=== PATIENT | female | born 1955 | race Caucasian/White ===

== ENCOUNTER 2017-01-09 10:10 | Day surgery (SDC) | payer BC ==
[~2017-01-09 10:10] MED LIST: Lactated Ringers 1,000 ML IV SCH; Lidocaine 2% 5 ML SDV ONE; Propofol 200 MG/20 ML SDV ONE; Sodium Chloride 0.9% 10 ML Syringe FLUSH PRN; Sodium Chloride 0.9% 2.5 ML Syringe FLUSH PRN
--- NOTE | 2017-01-09 11:31 | PCM.PREANE ---
Preanesthetic Assessment - Anesthesia/Transfusion/Family Hx Anesthesia History: Prior Anesthesia Without Reaction Other Type of Anesthesia Reaction Comment: reports "little motion sickness", no problem in past w/anesthesia "anxiety" Family History of Anesthesia Reaction: No Transfusion History: No Prior Transfusion(s) - Review of Systems General: No Symptoms Pulmonary: No Symptoms Cardiovascular: No Symptoms Neurological: No Symptoms Other: Reports: None - Physical Assessment O2 Sat by Pulse Oximetry: 96 Respiratory Rate: 16 Vital Signs: Last Vital Signs Temp 36.6 C 01/09/17 11:14 Pulse 64 01/09/17 11:14 Resp 16 01/09/17 11:14 BP 95/63 01/09/17 11:14 Pulse Ox 96 01/09/17 11:14 Height: 1.7 m Weight: 104.326 kg ASA Class: 3 Mental Status: Alert & Oriented x3 Airway Class: Mallampati = 2 Dentition: Reports: Dentures (uppert) Thyro-Mental Finger Breadths: 3 Mouth Opening Finger Breadths: 2 ROM/Head Extension: Full Lungs: Clear to auscultation, Normal respiratory effort, Decreased breath sounds Cardiovascular: Regular Rate, Regular Rhythm - Allergies Allergies/Adverse Reactions: Allergies Allergy/AdvReac Type Severity Reaction Status Date / Time No Known Allergies Allergy Verified 01/06/17 14:05 - Blood Blood Available: No - Anesthesia Plan Pre-Op Medication Ordered: None - Acknowledgements Anesthesia Type Planned: MAC Pt an Appropriate Candidate for the Planned Anesthesia: Yes Alternatives and Risks of Anesthesia Discussed w Pt/Guardian: Yes Pt/Guardian Understands and Agrees with Anesthesia Plan: Yes PreAnesthesia Questionnaire HEENT History: Reports: Allergic rhinitis Other HEENT History: wears glasses Cardiovascular History: Reports: Hypertension Respiratory History: Reports: COPD (moderate SOB after 2 blocks, still smoking 1 ppd) Other Respiratory History: 40 yr history of smoking Gastrointestinal History: Reports: GERD, Hepatitis Other Gastrointestinal History: hepatitis C was treated in 2009 Genitourinary History: Reports: None 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 Musculoskeletal History: Reports: Arthritis, Back pain, chronic, Neck pain, chronic Other Musculoskeletal History: hx of fx lumbar vertebrate Neurological History: Reports: None, Other (see below) (h/o migranes) Psychiatric History: Reports: Anxiety Endocrine/Metabolic History: Reports: Hypothyroidism, Obesity/BMI 30+ Hematologic History: Reports: Anemia Immunologic History: Reports: None Oncologic (Cancer) History: Reports: None Dermatologic History: Reports: None - Past Surgical History Head Surgeries/Procedures: Reports: None HEENT Surgical History: Reports: None Cardiovascular Surgical History: Reports: None Respiratory Surgical History: Reports: None GI Surgical History: Reports: Cholecystectomy, Colonoscopy (attempted a year ago by Dr. Berry), Other (see below) Other GI Surgeries/Procedures: liver bx Female Surgical History: Reports: Tubal ligation, Other (see below) Other Female Surgeries/Procedures: laparotomy for reversal of tubal ligation Endocrine Surgical History: Reports: None Neurological Surgical History: Reports: None Musculoskeletal Surgical History: Reports: None Oncologic Surgical History: Reports: None Dermatological Surgical History: Reports: None - SUBSTANCE USE Smoking Status *Q: Current Every Day Smoker Tobacco Use Within Last Twelve Months: Cigarettes Recreational Drug Use History: No - HOME MEDS Home Medications: Home Meds Atenolol [Tenormin] 1 tab PO DAILY 05/22/15 [History] Levothyroxine Sodium 1 tab PO DAILY 05/22/15 [History] Omeprazole 1 tab PO DAILY 05/22/15 [History] Zolpidem Tartrate [Zolpidem Tartrate ER] 1 tab PO BEDTIME PRN 05/22/15 [History] Albuterol Sulfate [Proair Hfa] 1 - 2 puff INH Q4H PRN 01/06/17 [History] Cholecalciferol (Vitamin D3) [Vitamin D3] 2,000 units PO BID 01/06/17 [History] ClonazePAM [KlonoPIN] 0.5 mg PO ASDIRECTED PRN 01/06/17 [History] Acetaminophen [Tylenol] 650 mg PO DAILY PRN 01/09/17 [History] - CURRENT (IN HOUSE) MEDS Current Meds: Current Medications Lactated Ringer's (Ringers, Lactated) 1,000 mls @ 125 mls/hr IV ASDIRECTED CAROLE Last Admin: 01/09/17 11:09 Dose: 125 mls/hr Sodium Chloride (Saline Flush) 10 ml FLUSH ASDIRECTED PRN PRN Reason: Keep Vein Open Sodium Chloride (Saline Flush) 2.5 ml FLUSH ASDIRECTED PRN PRN Reason: Keep Vein Open Discontinued Medications Lidocaine (Xylocaine-Mpf 2%) Confirm Administered Dose 5 ml .ROUTE .STK-MED ONE Stop: 01/09/17 07:39 Propofol (Diprivan 20 Ml) Confirm Administered Dose 400 mg .ROUTE .STK-MED ONE Stop: 01/09/17 07:41
--- NOTE | 2017-01-09 12:58 | PCM.OPNOTE ---
- General Post-Op/Procedure Note Date of Surgery/Procedure: 01/09/17 Operative Procedure(s): Diagnostic colonoscopy Pre Op Diagnosis: Colonoscopy Post-Op Diagnosis: Rectal and descending colon polyp Anesthesia Technique: MAC Primary Surgeon: Aliya Hanley Condition: Good Free Text/Narrative:: Intake & Output 01/08/17 01/09/17 01/09/17 22:59 06:59 14:59 Intake Total 850 Balance 850
--- NOTE | 2017-01-09 13:08 | PCM.POSTAN ---
POST ANESTHESIA ASSESSMENT - MENTAL STATUS Mental Status: alert, oriented - RESPIRATORY Respiratory Status: respiratory rate WNL, airway patent, O2 saturation stable - CARDIOVASCULAR CV Status: pulse rate WNL, blood pressure stable - GASTROINTESTINAL GI Status: no symptoms - POST OP HYDRATION Hydration Status: adequate & stable - OBSERVATIONS Free Text/Narrative:: no anesthesia problems
--- NOTE | 2017-01-09 15:17 | OR ---
SURGEON: KELSEY HORNE MD DATE OF PROCEDURE: 01/09/2017 PREOPERATIVE DIAGNOSIS: Change in bowel habits. POSTOPERATIVE DIAGNOSES: Descending colon polyp, rectal polyp. PROCEDURE PERFORMED: Colonoscopy. INSTRUMENT USED: Olympus colonoscope. ANESTHESIA: MAC. EXTENT OF EXAM: To the cecum. PREPARATION: Fair. LIMITATIONS: Unable to retroflex the scope in the rectum due to anesthetic reaction. INDICATIONS: The patient is a 61-year-old female, who underwent a colonoscopy last year. This was done for a change in her bowel habits. The colonoscopy was then able to be completed and the patient had a barium enema performed. Barium enema showed no evidence of abnormalities. The patient continues to have very loose stools and returns to discuss another colonoscopy. The patient and I discussed our options including non-colonoscopic way of assessing the colon. The patient would like to proceed with a colonoscopy attempt again this year. Should this fail, the patient will then undergo another barium enema. The patient and I discussed the procedure as well as expected perioperative course. The patient and I also discussed the risks including bleeding, infection, or damage to surrounding structures, including perforation. The patient verbalized understanding and wishes to proceed. PROCEDURE IN DETAIL: The patient was brought to the endoscopy suite and placed in left lateral decubitus position. A time-out was completed verifying the patient's name, age, date of , allergies, and procedure to be performed. Monitored anesthesia care was induced and continuous oxygen was provided via nasal cannula throughout the procedure. After adequate sedation was achieved, a digital rectal exam was performed. This examination was within normal limits. A well-lubricated colonoscope was then inserted into the rectum and advanced under direct visualization to the level of the cecum. The cecum was identified by both visual and anatomic landmarks. A photograph was taken of the cecal cap as well as with the scope retroflexed within the cecum. The scope was then fully withdrawn while examining the color, texture, anatomy, and integrity of the mucosa from the cecum to the anal canal. A 2 mm sessile polyp was noted in the descending colon. This was removed with a cold biopsy forceps. Another larger polyp was noted within the rectum. This was 3 to 4 mm in size and was removed in a similar fashion. Both polyps were sent to pathology labeled as descending colon polyp and rectal polyp respectively. While attempting to retroflex the scope within the rectum, the patient woke up suddenly from Anesthesia and started thrashing about. The scope was expelled from the patient and we were unable to obtain good anesthetic control of the patient. Given my good digital rectal exam, a fairly good look at the rectum itself during my polypectomy. Decision was made to not attempt to retroflex the scope within the rectum. The patient was able to be calmed down and then taken to PACU in stable condition. The cecum to anus time was 21 minutes. ENDOSCOPIC DIAGNOSES: Descending colon polyp and rectal polyp. RECOMMENDATION: Follow up in clinic in 2 weeks. [facility] /[id number]
[2017-01-13 08:20] VITALS: BP 100/64
== END 2017-01-09 13:17 | disposition home or self-care (01) ==
LOC: MW.SDS 10:10
PROVIDERS: ATTEND Surgery
PROC: 0DBM8ZZ Excision of Descending Colon, Via Natural or Artificial Opening Endoscopic (ICD-10-PCS; principal; 2017-01-09)
PROC: 0DBP8ZZ Excision of Rectum, Via Natural or Artificial Opening Endoscopic (ICD-10-PCS; 2017-01-09)
DX: D12.4 Benign neoplasm of descending colon (principal); D12.8 Benign neoplasm of rectum; I10 Essential (primary) hypertension; J44.9 Chronic obstructive pulmonary disease, unspecified; K21.9 Gastro-esophageal reflux disease without esophagitis; M19.90 Unspecified osteoarthritis, unspecified site; G89.29 Other chronic pain; F41.9 Anxiety disorder, unspecified; E03.9 Hypothyroidism, unspecified; D64.9 Anemia, unspecified; F17.210 Nicotine dependence, cigarettes, uncomplicated; Z86.19 Personal history of other infectious and parasitic diseases; Z98.51 Tubal ligation status; Z90.49 Acquired absence of other specified parts of digestive tract; Z98.890 Other specified postprocedural states; Z79.899 Other long term (current) drug therapy
CPT/HCPCS: 45380; J7120; 00810; 88305; J2704

== ENCOUNTER → 2017-01-17 | Outpatient (CLI) | payer BC ==
[~2017-01-17] MED LIST changes: +Albuterol 0.083% 2.5 MG/3 ML Neb Soln NEB ONE; -Lactated Ringers 1,000 ML IV SCH; -Lidocaine 2% 5 ML SDV ONE; -Propofol 200 MG/20 ML SDV ONE; -Sodium Chloride 0.9% 10 ML Syringe FLUSH PRN; -Sodium Chloride 0.9% 2.5 ML Syringe FLUSH PRN
== END | disposition home or self-care (01) ==
LOC: MW.RT 08:38
PROVIDERS: ATTEND Internal Medicine
DX: J44.9 Chronic obstructive pulmonary disease, unspecified (principal)
CPT/HCPCS: 94060; 94729

== ENCOUNTER → 2017-01-30 | Outpatient (CLI) | payer BC | LOC: MW.CHIM 10:25 | PROVIDERS: ATTEND Internal Medicine | DX: R31.9 Hematuria, unspecified (principal) | CPT/HCPCS: 81001 ==

== ENCOUNTER → 2017-02-03 | Outpatient (CLI) | payer BC ==
--- NOTE | 2017-02-03 13:39 | US ---
EXAMINATION: Renal ultrasound HISTORY: Hematuria COMPARISON: None TECHNIQUE: Grayscale and color Doppler images obtained of the kidneys. FINDINGS: The right kidney measures at least 10.1 cm and the left kidney measures at least 10.7 cm p ole-to-pole without evidence of hydronephrosis. The renal cortical echotexture is normal. There is n ormal color Doppler flow bilaterally. No renal masses. The urinary bladder was minimally filled. IMPRESSION: Unremarkable renal ultrasound.
== END ==
LOC: MW.US 08:56
PROVIDERS: ATTEND Internal Medicine
DX: R31.9 Hematuria, unspecified (principal)
CPT/HCPCS: 76775; 76775-26

== ENCOUNTER 2017-12-16 05:59 | Emergency (ER) | payer BC ==
[2017-12-16] MEDS ORDERED: Ketorolac 60 MG/2 ML SDV IM ONE (06:22)
[2017-12-16] MEDS ORDERED: Ondansetron 4 MG Tab.DIS PO ONE (06:22)
--- NOTE | 2017-12-16 06:27 | EDM.PDOC ---
<Chasity Gramajo - Last Filed: 12/16/17 07:05> ED HPI GENERAL MEDICAL PROBLEM - General Chief Complaint: General Stated Complaint: HARD TIME BREATHING Time Seen by Provider: 12/16/17 06:15 - History of Present Illness INITIAL COMMENTS - FREE TEXT/NARRATIVE: HISTORY AND PHYSICAL: History of present illness: The patient is a 62-year-old female with a history of hypertension and hypothyroidism who presents with 2 complaints ED this morning; the first complaint is of right upper extremity and shoulder pain that is been ongoing for the last 6 weeks which feels more muscular and she has not had any trauma to the area and initially it was more along the posterior aspect of her right humeral area in the muscles and soft tissue and now appears to be involving the shoulder. She says that she has been only using Tylenol for pain and certain movements make it worse but she did not follow up with her provider in the clinic regarding this problem over the last 6 weeks. The second complaint is of waking this morning and feeling very sweaty and very shaky and having some loose watery stools and having some epigastric discomfort without any chest pain but feeling slightly short of breath. She said she felt very shaky when she awoke but does feel improved now. She does not have any chest pain or shortness of breath currently but did have shortness of breath prior to coming here. She has some epigastric discomfort but has a history of cholecystectomy and did not eat anything new or different. She has no lower abdominal pain no urinary complaints and no new back pain. The patient says that when she sits in any one position for any per time she'll get back spasms and that is not new or different today. The patient overall is very vague but also very diffuse with her complaints and is having trouble focusing on what concerns her the most. Review of systems: As per history of present illness and below otherwise all systems reviewed and negative. Past medical history: As per history of present illness and as reviewed below otherwise noncontributory. Surgical history: As per history of present illness and as reviewed below otherwise noncontributory. Social history: No reported history of drug or alcohol abuse. Family history: As per history of present illness and as reviewed below otherwise noncontributory. Physical exam: General: Well-developed well-nourished female who moves easily in the ED and vital signs are noted by me HEENT: Atraumatic, normocephalic, pupils reactive, negative for conjunctival pallor or scleral icterus, mucous membranes moist, throat clear, neck supple, nontender, trachea midline. Lungs: Clear to auscultation, breath sounds equal bilaterally, chest nontender. Heart: S1S2, regular rate and rhythm no overt murmurs Abdomen: Soft, nondistended, slight epigastric discomfort without rebound or guarding and bowel sounds are normoactive. Negative for masses or hepatosplenomegaly. Negative for costovertebral tenderness. Pelvis: Stable nontender. Genitourinary: Deferred. Rectal: Deferred. Extremities: Atraumatic, negative for cords or calf pain. Neurovascular unremarkable. Full range of motion without any defects or deficits. At the right upper extremity there is no discrete joint effusion at the shoulder no bony deformities at the clavicle shoulder humerus or elbow and no soft tissue swelling of the upper extremity. There is no ecchymosis erythema warmth or redness appreciated and there is some reproducible tenderness with palpation along the posterior aspect of the muscle area without any specific focal area of tenderness or deformity. The patient is able to range of motion at the right upper extremity and has good strength and sensation. Skin color is normal and there are no lesions appreciated. Neuro: Awake, alert, oriented. Cranial nerves II through XII unremarkable. Cerebellum unremarkable. Motor and sensory unremarkable throughout. Exam nonfocal. Diagnostics: EKG chest x-ray x-ray right shoulder and humerus CBC CMP troponin amylase lipase H pylori [employer]: Toradol Zofran 0700: case is endorsed to Dr Hilario; she will f/u all testing results and dispo pt accordingly. Impression: Chronic right upper extremity pain stable, epigastric discomfort and diarrhea stable Definitive disposition and diagnosis as appropriate pending reevaluation and review of above. Right Arm Pain Score (Numeric/FACES): 3 epigastric pain Pain Score (Numeric/FACES): 5 - Related Data Allergies Allergy/AdvReac Type Severity Reaction Status Date / Time No Known Allergies Allergy Verified 12/16/17 06:10 Home Meds: Home Meds Atenolol [Tenormin] 1 tab PO DAILY 05/22/15 [History] Levothyroxine Sodium 1 tab PO DAILY 05/22/15 [History] Zolpidem Tartrate [Zolpidem Tartrate ER] 1 tab PO BEDTIME PRN 05/22/15 [History] Albuterol Sulfate [Proair Hfa] 1 - 2 puff INH Q4H PRN 01/06/17 [History] Cholecalciferol (Vitamin D3) [Vitamin D3] 2,000 units PO DAILY 01/06/17 [History ] ClonazePAM [KlonoPIN] 0.5 mg PO ASDIRECTED PRN 01/06/17 [History] Acetaminophen [Tylenol] 650 mg PO DAILY PRN 01/09/17 [History] Omeprazole 20 mg PO DAILY #30 cap.cr 01/09/17 [Rx] Past Medical History HEENT History: Reports: Allergic Rhinitis Other HEENT History: wears glasses Cardiovascular History: Reports: Hypertension Respiratory History: Reports: COPD Other Respiratory History: 40 yr history of smoking Gastrointestinal History: Reports: GERD, Hepatitis Other Gastrointestinal History: hepatitis C was treated in 2009 Genitourinary History: Reports: None 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 Musculoskeletal History: Reports: Arthritis, Back Pain, Chronic, Neck Pain, Chronic Other Musculoskeletal History: hx of fx lumbar vertebrate Neurological History: Reports: None, Other (See Below) Psychiatric History: Reports: Anxiety Endocrine/Metabolic History: Reports: Hypothyroidism, Obesity/BMI 30+ Hematologic History: Reports: Anemia Immunologic History: Reports: None Oncologic (Cancer) History: Reports: None Dermatologic History: Reports: None - Past Surgical History GI Surgical History: Reports: Cholecystectomy, Colonoscopy, Other (See Below) Female Surgical History: Reports: Tubal Ligation, Other (See Below) Social & Family History - Tobacco Use Smoking Status *Q: Current Every Day Smoker Years of Tobacco use: 35 Packs/Tins Daily: 1 - Recreational Drug Use Recreational Drug Use: No Drug Use in Last 12 Months: No ED ROS GENERAL - Review of Systems Review Of Systems: ROS reveals no pertinent complaints other than HPI. ED EXAM, GENERAL - Physical Exam Exam: See Below (See dictation) Course - Vital Signs Last Recorded V/S: Last Vital Signs Temp 96.5 F 12/16/17 06:10 Pulse 73 12/16/17 07:39 Resp 18 12/16/17 07:39 BP 119/80 12/16/17 07:39 Pulse Ox 95 12/16/17 07:39 - Orders/Labs/Meds Orders: Active Orders 24 hr Category Date Time Status EKG Documentation Completion [RC] STAT Care 12/16/17 06:21 Active Chest 1V Frontal [CR] Stat Exams 12/16/17 06:22 Taken Humerus Rt [CR] Stat Exams 12/16/17 06:22 Taken Shoulder Comp Rt [CR] Stat Exams 12/16/17 06:22 Taken UA W/MICROSCOPIC [URIN] Stat Lab 12/16/17 06:23 Ordered Labs: Laboratory Tests 12/16/17 12/16/17 12/16/17 Range/Units 06:23 06:35 06:35 WBC 9.39 (4.0-11.0) K/uL RBC 5.11 (4.30-5.90) M/uL Hgb 15.7 (12.0-16.0) g/dL Hct 44.6 (36.0-46.0) % MCV 87.3 (80.0-98.0) fL MCH 30.7 (27.0-32.0) pg MCHC 35.2 (31.0-37.0) g/dL RDW Std Deviation 43.4 (28.0-62.0) fl RDW Coeff of Tonya 14 (11.0-15.0) % Plt Count 201 (150-400) K/uL MPV 10.90 (7.40-12.00) fL Neut % (Auto) 69.0 (48.0-80.0) % Lymph % (Auto) 22.8 (16.0-40.0) % Greenlee % (Auto) 6.3 (0.0-15.0) % Eos % (Auto) 1.6 (0.0-7.0) % Baso % (Auto) 0.3 (0.0-1.5) % Neut # (Auto) 6.5 H (1.4-5.7) K/uL Lymph # (Auto) 2.1 (0.6-2.4) K/uL Greenlee # (Auto) 0.6 (0.0-0.8) K/uL Eos # (Auto) 0.2 (0.0-0.7) K/uL Baso # (Auto) 0.0 (0.0-0.1) K/uL Nucleated RBC % 0.0 /100WBC Nucleated RBCs # 0 K/uL Sodium 135 L (136-145) mmol/L Potassium 3.5 (3.5-5.1) mmol/L Chloride 100 (98-107) mmol/L Carbon Dioxide 23.8 (21.0-32.0) mmol/L BUN 15 (7.0-18.0) mg/dL Creatinine 1.0 (0.6-1.0) mg/dL Est Cr Clr Drug Dosing 56.72 mL/min Estimated GFR (MDRD) 56.2 ml/min Glucose 143 H (74-106) mg/dL Calcium 8.8 (8.5-10.1) mg/dL Total Bilirubin 0.5 (0.2-1.0) mg/dL AST 41 H (15-37) IU/L ALT 48 (14-63) IU/L Alkaline Phosphatase 104 (46-116) U/L Troponin I < 0.050 (0.000-0.056) ng/mL Total Protein 7.7 (6.4-8.2) g/dL Albumin 3.8 (3.4-5.0) g/dL Globulin 3.9 H (2.0-3.5) g/dL Albumin/Globulin Ratio 1.0 L (1.3-2.8) Amylase 35 (25-115) U/L Lipase 241 (73-393) U/L Urine Color YELLOW Urine Appearance CLEAR Urine pH 5.5 (5.0-8.0) Ur Specific [place] >= 1.030 (1.001-1.035) Urine Protein 30 (NEGATIVE) mg/dL Urine Glucose (UA) NEGATIVE (NEGATIVE) mg/dL Urine Ketones TRACE H (NEGATIVE) mg/dL Urine Occult Blood NEGATIVE (NEGATIVE) Urine Nitrite NEGATIVE (NEGATIVE) Urine Bilirubin SMALL H (NEGATIVE) Urine Ictotest NEGATIVE Urine Urobilinogen 0.2 (<2.0) EU/dL Ur Leukocyte Esterase NEGATIVE (NEGATIVE) Urine RBC 0-1 (0-2/HPF) Urine WBC 2-4 (0-5/HPF) Ur Epithelial Cells MODERATE (NONE-FEW) Urine Bacteria FEW (NEGATIVE) Hyaline Casts 10-15 (0-2/LPF) Urine Mucus LIGHT (NONE-MOD) H. pylori IgG Antibody (NEG) 12/16/17 Range/Units 06:35 WBC (4.0-11.0) K/uL RBC (4.30-5.90) M/uL Hgb (12.0-16.0) g/dL Hct (36.0-46.0) % MCV (80.0-98.0) fL MCH (27.0-32.0) pg MCHC (31.0-37.0) g/dL RDW Std Deviation (28.0-62.0) fl RDW Coeff of Tonya (11.0-15.0) % Plt Count (150-400) K/uL MPV (7.40-12.00) fL Neut % (Auto) (48.0-80.0) % Lymph % (Auto) (16.0-40.0) % [place]lee % (Auto) (0.0-15.0) % Eos % (Auto) (0.0-7.0) % Baso % (Auto) (0.0-1.5) % Neut # (Auto) (1.4-5.7) K/uL Lymph # (Auto) (0.6-2.4) K/uL [place]lee # (Auto) (0.0-0.8) K/uL Eos # (Auto) (0.0-0.7) K/uL Baso # (Auto) (0.0-0.1) K/uL Nucleated RBC % /100WBC Nucleated RBCs # K/uL Sodium (136-145) mmol/L Potassium (3.5-5.1) mmol/L Chloride (98-107) mmol/L Carbon Dioxide (21.0-32.0) mmol/L BUN (7.0-18.0) mg/dL Creatinine (0.6-1.0) mg/dL Est Cr Clr Drug Dosing mL/min Estimated GFR (MDRD) ml/min Glucose (74-106) mg/dL Calcium (8.5-10.1) mg/dL Total Bilirubin (0.2-1.0) mg/dL AST (15-37) IU/L ALT (14-63) IU/L Alkaline Phosphatase (46-116) U/L Troponin I (0.000-0.056) ng/mL Total Protein (6.4-8.2) g/dL Albumin (3.4-5.0) g/dL Globulin (2.0-3.5) g/dL Albumin/Globulin Ratio (1.3-2.8) Amylase (25-115) U/L Lipase (73-393) U/L Urine Color Urine Appearance Urine pH (5.0-8.0) Ur Specific [place] (1.001-1.035) Urine Protein (NEGATIVE) mg/dL Urine Glucose (UA) (NEGATIVE) mg/dL Urine Ketones (NEGATIVE) mg/dL Urine Occult Blood (NEGATIVE) Urine Nitrite (NEGATIVE) Urine Bilirubin (NEGATIVE) Urine Ictotest Urine Urobilinogen (<2.0) EU/dL Ur Leukocyte Esterase (NEGATIVE) Urine RBC (0-2/HPF) Urine WBC (0-5/HPF) Ur Epithelial Cells (NONE-FEW) Urine Bacteria (NEGATIVE) Hyaline Casts (0-2/LPF) Urine Mucus (NONE-MOD) H. pylori IgG Antibody NEGATIVE (NEG) Meds: Medications Discontinued Medications Generic Name Dose Route Start Last Admin Trade Name Freq PRN Reason Stop Dose Admin Ketorolac Tromethamine 60 mg 12/16/17 06:22 12/16/17 06:35 Toradol IM 12/16/17 06:23 60 mg ONETIME ONE Administration Ondansetron HCl 4 mg 12/16/17 06:22 12/16/17 06:35 Zofran Odt PO 12/16/17 06:23 4 mg ONETIME ONE Administration Departure - Departure Disposition: Home, Self-Care 01 Condition: Good Clinical Impression: Upper extremity pain Qualifiers: Laterality: right Qualified Code(s): M79.601 - Pain in right arm - Discharge Information Referrals: PCP,None [Primary Care Provider] - Forms: ED Department Discharge Additional Instructions: The following information is given to patients seen in the emergency department who are being discharged to home. This information is to outline your options for follow-up care. We provide all patients seen in our emergency department with a follow-up referral. The need for follow-up, as well as the timing and circumstances, are variable depending upon the specifics of your emergency department visit. If you don't have a primary care physician on staff, we will provide you with a referral. We always advise you to contact your personal physician following an emergency department visit to inform them of the circumstance of the visit and for follow-up with them and/or the need for any referrals to a consulting specialist. The emergency department will also refer you to a specialist when appropriate. This referral assures that you have the opportunity for followup care with a specialist. All of these measure are taken in an effort to provide you with optimal care, which includes your followup. Under all circumstances we always encourage you to contact your private physician who remains a resource for coordinating your care. When calling for followup care, please make the office aware that this follow-up is from your recent emergency room visit. If for any reason you are refused follow-up, please contact the [facility] emergency department at and ask to speak to the emergency department charge nurse. [facility] Primary care- Internal Medicine and Family [address] [address] Please contact your new provider in the clinic for further care and evaluation of these complaints. Please return to ER as needed and as discussed. <Anna Hilario - Last Filed: 12/16/17 07:54> Departure - Departure Time of Disposition: 07:54
[2017-12-16 07:06] LABS: CHLORIDE,CL 100 mmol/L (98-107); SODIUM,NA 135 mmol/L (136-145)
[2017-12-16 08:11] VITALS: BP 150/88
--- NOTE | 2017-12-16 09:53 | CR ---
EXAM DATE: 12/16/17 PATIENT'S AGE: 62 Patient: LAIYA THOMSON Facility: [place], [place] Site . Site : 1955 Study: XRay Chest [id number]/3/[id number] 7:26:40 AM Ordering Physician: Rox Gaspar Final Report: INDICATION: Chest pain COMPARISON: Two view chest dated 12/20/2016. TECHNIQUE: Two view chest. FINDINGS: The lungs are clear. There is no evidence of pneumothorax. The heart, mediastinum and pulmonary vessels are of normal size. There is no evidence of pleural fluid. IMPRESSION: Negative chest. Dictated by Darrion Bernal MD @ Dec 16 2017 7:27AM (Electronic Signature) Report Signed by Proxy. [facility]
--- NOTE | 2017-12-16 09:57 | CR ---
EXAM DATE: 12/16/17 PATIENT'S AGE: 62 Patient: ALIYA THOMSON Facility: [place], [place] Site . Site : 1955 Study: XRay Extremity Right [id number]/3/2018 7:29:49 AM Ordering Physician: Rox Gaspar Final Report: INDICATION: Pain COMPARISON: none TECHNIQUE: Two-view right humerus FINDINGS: The glenohumeral joint and elbow are anatomically aligned. There is no evidence of a humeral fracture, erosion or intrinsic bone lesion. The soft tissues appear normal. IMPRESSION: Negative right humerus. Dictated by Darrion Bernal MD @ Dec 16 2017 7:36AM (Electronic Signature) Report Signed by Proxy. [facility]
--- NOTE | 2017-12-16 09:58 | CR ---
EXAM DATE: 12/16/17 PATIENT'S AGE: 62 Patient: ALIYA THOMSON Facility: [place], [place] Site . Site : 1955 Study: XRay Shoulder Right [id number]/3/2018 7:30:23 AM Ordering Physician: Rox Gaspar Final Report: INDICATION: Shoulder pain COMPARISON: none TECHNIQUE: Three-view right shoulder FINDINGS: The AC joint and glenohumeral joint are anatomically aligned. There is no evidence of fracture, erosion or intrinsic bone lesion. The upper right ribs appear intact. The soft tissues appear normal. IMPRESSION: Negative right shoulder. Dictated by Darrion Bernal MD @ Dec 16 2017 7:38AM (Electronic Signature) Report Signed by Proxy. FELIPA
== END 2017-12-16 08:06 | disposition home or self-care (01) ==
LOC: MW.ED 05:59
DX: M25.511 Pain in right shoulder (principal); R10.13 Epigastric pain; I10 Essential (primary) hypertension; J44.9 Chronic obstructive pulmonary disease, unspecified; F17.210 Nicotine dependence, cigarettes, uncomplicated; K21.9 Gastro-esophageal reflux disease without esophagitis; Z86.19 Personal history of other infectious and parasitic diseases; Z79.899 Other long term (current) drug therapy
CPT/HCPCS: 36415; 71045; 73030; 73060; 80053; 81001; 82150; 83690; 84484; 85025; 86677; 93005; 96372; 99284; A9270; J1885

== ENCOUNTER 2019-09-30 10:16 | Day surgery (SDC) | payer MEDICARE, OTHER ==
[~2019-09-30 10:16] MED LIST changes: -Albuterol 0.083% 2.5 MG/3 ML Neb Soln NEB ONE; +Lactated Ringers 1,000 ML IV SCH; +Sodium Chloride 0.9% 10 ML SDV IV PRN; +Sodium Chloride 0.9% 10 ML Syringe FLUSH PRN; +Sodium Chloride 0.9% 2.5 ML Syringe FLUSH PRN
--- NOTE | 2019-09-30 11:19 | PCM.PREANE ---
Preanesthetic Assessment - Anesthesia/Transfusion/Family Hx Anesthesia History: Prior Anesthesia Without Reaction Other Type of Anesthesia Reaction Comment: reports "little motion sickness", no problem in past w/anesthesia "anxiety" Family History of Anesthesia Reaction: No Transfusion History: No Prior Transfusion(s) Intubation History: Unknown - Review of Systems General: No Symptoms Pulmonary: No Symptoms Cardiovascular: No Symptoms Gastrointestinal: Diarrhea, Other (worsening reflux, h/o colon polyp) Neurological: No Symptoms Other: Reports: None - Physical Assessment Vital Signs: Last Vital Signs Temp 36.3 C 09/30/19 10:35 Pulse 70 09/30/19 10:35 Resp 15 09/30/19 10:35 BP 132/79 09/30/19 10:35 Pulse Ox 97 09/30/19 10:35 Height: 5 ft 6 in Weight: 95.708 kg ASA Class: 3 Mental Status: Alert & Oriented x3 Airway Class: Mallampati = 2 Dentition: Reports: Dentures (upper) Thyro-Mental Finger Breadths: 3 Mouth Opening Finger Breadths: 3 ROM/Head Extension: Limited/Partial Lungs: Clear to Auscultation, Normal Respiratory Effort Cardiovascular: Regular Rate, Regular Rhythm - Allergies Allergies/Adverse Reactions: Allergies Allergy/AdvReac Type Severity Reaction Status Date / Time No Known Allergies Allergy Verified 09/24/19 13:55 - Blood Blood Available: No - Anesthesia Plan Pre-Op Medication Ordered: None - Acknowledgements Anesthesia Type Planned: MAC Pt an Appropriate Candidate for the Planned Anesthesia: Yes Alternatives and Risks of Anesthesia Discussed w Pt/Guardian: Yes Pt/Guardian Understands and Agrees with Anesthesia Plan: Yes PreAnesthesia Questionnaire HEENT History: Reports: Other (See Below) Other HEENT History: wears glasses, has upper denture Cardiovascular History: Reports: Hypertension Respiratory History: Reports: COPD, SOB (occasionaly) Other Respiratory History: 40 yr history of smoking Gastrointestinal History: Reports: Colon Polyp, GERD, Hepatitis Other Gastrointestinal History: hx of Hepatitis C- has been treated Genitourinary History: Reports: None REHANGER History: Reports: Musculoskeletal History: Reports: Back Pain, Chronic, Neck Pain, Chronic, Other (See Below) Other Musculoskeletal History: hx of fx vertebrae Neurological History: Reports: Migraines, Other (See Below) Other Neuro History: hx of motion sickness Psychiatric History: Reports: Anxiety Endocrine/Metabolic History: Reports: Hypothyroidism, Obesity/BMI 30+, Osteopenia, Other (See Below) (glucose levels increase (pre-diabetes ?)) Hematologic History: Reports: Anemia Immunologic History: Reports: None Oncologic (Cancer) History: Reports: None Dermatologic History: Reports: Psoriasis - Infectious Disease History Infectious Disease History: Reports: Hepatitis C ('10 received treatment) - Past Surgical History Head Surgeries/Procedures: Reports: None GI Surgical History: Reports: Cholecystectomy, Colonoscopy, Other (See Below) Other GI Surgeries/Procedures: hx of liver bx Female Surgical History: Reports: Tubal Ligation - SUBSTANCE USE Smoking Status *Q: Current Every Day Smoker (1/2 ppd) Tobacco Use Within Last Twelve Months: Cigarettes Recreational Drug Use History: No - HOME MEDS Home Medications: Home Meds Zolpidem Tartrate [Zolpidem Tartrate ER] 1 tab PO BEDTIME PRN 05/22/15 [History] atenoloL [Tenormin] 50 mg PO QAM 05/22/15 [History] Albuterol Sulfate [Proair Hfa] 1 - 2 puff INH Q4H PRN 01/06/17 [History] Cholecalciferol (Vitamin D3) [Vitamin D3] 1,000 units PO DAILY 01/06/17 [History ] ClonazePAM [KlonoPIN] 0.5 mg PO ASDIRECTED PRN 01/06/17 [History] Acetaminophen [Tylenol] 650 mg PO DAILY PRN 01/09/17 [History] Calcium Carbonate [Calcium] 1 tab PO DAILY 09/24/19 [History] Levothyroxine Sodium 137 mcg PO DAILY 09/24/19 [History] Omeprazole 40 mg PO DAILY 09/24/19 [History] - CURRENT (IN HOUSE) MEDS Current Meds: Current Medications Lactated Ringer's (Ringers, Lactated) 1,000 mls @ 125 mls/hr IV ASDIRECTED CAROLE Sodium Chloride (Saline Flush) 10 ml FLUSH ASDIRECTED PRN PRN Reason: Keep Vein Open Sodium Chloride (Saline Flush) 2.5 ml FLUSH ASDIRECTED PRN PRN Reason: Keep Vein Open Sodium Chloride (Saline Flush) 10 ml FLUSH ASDIRECTED PRN PRN Reason: Keep Vein Open Sodium Chloride (Saline Flush) 2.5 ml FLUSH ASDIRECTED PRN PRN Reason: Keep Vein Open Sodium Chloride (Normal Saline) 10 ml IV ASDIRECTED PRN PRN Reason: IV Use
[2019-09-30] MEDS ORDERED: Propofol 200 MG/20 ML SDV ONE ×3 (13:37→14:38)
[2019-09-30] MEDS ORDERED: Lidocaine 2% 5 ML SDV ONE ×2 (13:40→13:41)
--- NOTE | 2019-09-30 14:49 | PCM.OPNOTE ---
- General Post-Op/Procedure Note Date of Surgery/Procedure: 09/30/19 Operative Procedure(s): Diagnostic EGD and colonoscopy Findings: Hiatal hernia with GERD, ascending and transverse colon biopsies, diverticulosis, Grade IV hemorrhoids Colon polyps: splenic flexure x 2, descending colon, sigmoid colon, Pre Op Diagnosis: GERD, chronic diarrhea Post-Op Diagnosis: Hiatal hernia with GERD, ascending and transverse colon biopsies, diverticulosis, Grade IV hemorrhoids. Colon polyps: splenic flexure x 2, descending colon, sigmoid colon, Anesthesia Technique: MAC Primary Surgeon: Aliya Hanley Condition: Good
--- NOTE | 2019-09-30 15:00 | PCM.POSTAN ---
POST ANESTHESIA ASSESSMENT - MENTAL STATUS Mental Status: Alert - VITAL SIGNS Vital Signs: Last Vital Signs Temp 36.3 C 09/30/19 10:35 Pulse 66 09/30/19 14:55 Resp 18 09/30/19 14:55 BP 123/73 09/30/19 14:55 Pulse Ox 95 09/30/19 14:55 - RESPIRATORY Respiratory Status: Respiratory Rate WNL - CARDIOVASCULAR CV Status: Pulse Rate WNL - GASTROINTESTINAL GI Status: No Symptoms - POST OP HYDRATION Hydration Status: Adequate & Stable
--- NOTE | 2019-09-30 15:17 | PCM48HPAN ---
Post Anesthesia Note - EVALUATION WITHIN 48HRS OF ANESTHETIC Vital Signs in Normal Range: Yes Patient Participated in Evaluation: Yes Respiratory Function Stable: Yes Airway Patent: Yes Cardiovascular Function Stable: Yes Hydration Status Stable: Yes Pain Control Satisfactory: Yes Nausea and Vomiting Control Satisfactory: Yes Mental Status Recovered: Yes Vital Signs: Last Vital Signs Temp 36.3 C 09/30/19 10:35 Pulse 60 09/30/19 15:00 Resp 17 09/30/19 15:00 BP 128/80 09/30/19 15:00 Pulse Ox 96 09/30/19 15:00 - COMMENTS/OBSERVATIONS Free Text/Narrative:: No anesthesia problems
[2019-09-30 15:32] VITALS: BP 121/74; PULSE 66
--- NOTE | 2019-10-01 14:37 | OR ---
SURGEON: ALIYA HANLEY MD DATE OF PROCEDURE: 09/30/2019 PREOPERATIVE DIAGNOSES: Gastroesophageal reflux disease, chronic diarrhea. POSTOPERATIVE DIAGNOSES: 1. Hiatal hernia with gastroesophageal reflux disease. 2. Diverticulosis. 3. Grade 4 hemorrhoids. 4. Sigmoid colon polyp x1. 5. Splenic flexure polyp x2. 6. Descending colon polyp x1. PROCEDURES PERFORMED: Diagnostic esophagogastroduodenoscopy and colonoscopy. PRIMARY SURGEON: Aliya Hanley MD. ANESTHESIA: MAC. INSTRUMENT USED: Olympus endoscope, colonoscope. EXTENT OF EXAM: To the second portion of duodenum, to the cecum. PREPARATION: Good. LIMITATIONS: None. INDICATIONS FOR EXAMINATION: The patient is a 64-year-old female who presents with chronic GERD despite PPI treatment as well as ongoing diarrhea. I explained the need for diagnostic EGD and colonoscopy. I explained the procedure; expected perioperative course; and the risks including bleeding, infection, or damage to surrounding structures including perforation. The patient verbalized understanding and wishes to proceed. PROCEDURE IN DETAIL: The patient was brought into the endoscopy suite and placed in the left lateral decubitus position. A time-out was completed verifying the patient's name, age, date of , allergies, and procedure to be performed. A bite block was placed in the patient's mouth. Monitored anesthesia care was induced and continuous oxygen was provided via nasal cannula throughout the procedure. After adequate sedation was achieved, a well-lubricated endoscope was placed in the patient's mouth and advanced under direct visualization to the second portion of duodenum. This appeared normal and a photograph was taken. The scope was then fully withdrawn while examining the color, texture, anatomy, and integrity of the mucosa of the upper GI tract. The duodenum appeared normal. The scope was then brought into the stomach and a photograph was taken of the pylorus. I was unable to retroflex the scope to take a look at the GE junction. I could not tell if this was just due to technical issues that we were having with the scope or if the patient had a large hiatal hernia. Biopsies were taken of the gastric antrum, body, and fundus and sent for histologic review and H. pylori testing. The scope was brought into the distal esophagus. The Z-line was at 30 cm from the teeth. A photograph of this was taken. The remainder of the esophageal mucosa appeared normal. The scope was removed and the procedure terminated. A digital rectal exam was performed. The patient was noted to have grade 4 hemorrhoids. A well-lubricated colonoscope was inserted in the rectum and advanced under direct visualization to the level of the cecum. The cecum was identified by both visual and anatomic landmarks. A photograph was taken of the cecal cap. I was unable to retroflex the scope within the cecum, but did intubate the terminal ileum. The distal small bowel all appeared normal. The scope was removed and slowly pulled backwards while examining the color, texture, anatomy, and integrity of the mucosa from the cecum to the anal canal. Random biopsies were taken of the ascending and descending colon. The patient was noted to have sessile polyps at the splenic flexure, descending colon, and in the sigmoid colon. There were 2 polyps in the splenic flexure. All of these polyps were removed in piecemeal fashion using cold biopsy forceps. The patient was also noted to have diverticulosis within the sigmoid colon. The scope was then brought to the rectum and retroflexed to allow visualization of the anal canal opening. This appeared normal and a photograph was taken. The scope was then straightened out and fully withdrawn. The cecum to anus time was 19 minutes. The patient tolerated the procedure well and was transferred to the PACU in stable condition. ENDOSCOPIC DIAGNOSES: 1. Hiatal hernia with gastroesophageal reflux disease. 2. Grade 4 hemorrhoids. 3. Diverticulosis. 4. Sigmoid colon polyp x1. 5. Descending colon polyp x1. 6. Splenic flexure polyp x2. RECOMMENDATIONS: Follow up in clinic in 2 weeks. We will obtain an esophagram in the meantime to better evaluate whether or not the patient has a hiatal hernia. [facility] /[id number]
== END 2019-09-30 15:25 | disposition home or self-care (01) ==
LOC: MW.SDS 10:16
PROVIDERS: ATTEND Surgery
DX: D12.3 Benign neoplasm of transverse colon (principal); K63.5 Polyp of colon; K29.50 Unspecified chronic gastritis without bleeding; K21.9 Gastro-esophageal reflux disease without esophagitis; K44.9 Diaphragmatic hernia without obstruction or gangrene; K57.30 Diverticulosis of large intestine without perforation or abscess without bleeding; K64.3 Fourth degree hemorrhoids; J44.9 Chronic obstructive pulmonary disease, unspecified; I10 Essential (primary) hypertension; E03.9 Hypothyroidism, unspecified; G43.909 Migraine, unspecified, not intractable, without status migrainosus; F41.9 Anxiety disorder, unspecified; E55.9 Vitamin D deficiency, unspecified; M19.019 Primary osteoarthritis, unspecified shoulder; F17.200 Nicotine dependence, unspecified, uncomplicated; E66.9 Obesity, unspecified; Z79.899 Other long term (current) drug therapy
CPT/HCPCS: 43239; 45380; 88305; 88312; J2001; J2704; J7120; 00813

== ENCOUNTER 2020-04-27 13:17 | Emergency (ER) | payer MEDICARE, OTHER ==
[2020-04-27 13:33] VITALS: BP 124/95; PULSE 102
--- NOTE | 2020-04-27 14:04 | EDM.PDOC ---
ED HPI GENERAL MEDICAL PROBLEM - General Chief Complaint: General Time Seen by Provider: 04/27/20 13:32 Source of Information: Reports: Patient History Limitations: Reports: No Limitations - History of Present Illness INITIAL COMMENTS - FREE TEXT/NARRATIVE: HISTORY AND PHYSICAL: History of present illness: Patient is a 64-year-old female who presents to the ED today with concern of right-sided facial swelling that started a few hours prior to arrival to the ED. Patient states that she has had this happen before and it has gone down rather quickly. Patient states today it has become more swollen and more painful so she decided to come to be evaluated. Patient states she does have an appointment tomorrow with her primary care provider, Dr. Gee, but started to get worried as it got more painful throughout the day. Patient denies any trauma or injury. Patient denies fever, chills, chest pain, shortness of breath, or cough. Denies headache, neck stiff ness, change in vision, syncope, or near syncope. Denies nausea, vomiting, abdominal pain, diarrhea, constipation, or dysuria. Has not noted any blood in urine or stool. Patient has been eating and drinking appropriately. Review of systems: As per history of present illness and below otherwise all systems reviewed and negative. Past medical history: As per history of present illness and as reviewed below otherwise noncontributor y. Surgical history: As per history of present illness and as reviewed below otherwise noncontributory. Social history: See social history for further information Family history: As per history of present illness and as reviewed below otherwise noncontributory. Physical exam: General: Patient is alert, oriented, and in no acute distress. Patient sitting comfortably on exam table. HEENT: The right sided submandibular node is noticeably enlarged on exam and does extend up into the right sided parotid area. This area is tender to palpation without erythema or warmth. Patient is missing several teeth and does have a denture of the upper teeth. Patient does have several eroded teeth adjacent to the mandible. Otherwise, atraumatic, normocephalic, pupils equal and reactive bilaterally, negative for conjunctival pallor or scleral icterus, mucous membranes moist, TMs normal bilaterally, throat clear, neck supple, nontender, trachea midline. No drooling or trismus noted. No meningeal signs. No hot potato voice noted. Lungs: Clear to auscultation, breath sounds equal bilaterally, chest nontender. Heart: S1S2, regular rate and rhythm without overt murmur Abdomen: Soft, nondistended, nontender. Negative for masses or hepatosplenomegaly. Negative for costovertebral tenderness. Pelvis: Stable nontender. Genitourinary: Deferred. Rectal: Deferred. Skin: Intact, warm, dry. No lesions or rashes noted. Extremities: Atraumatic, negative for cords or calf pain. Neurovascular unremarkable. Neuro: Awake, alert, oriented. Cranial nerves II through XII unremarkable. Cerebellum unremarkable. Motor and sensory unremarkable throughout. Exam nonfocal. Notes: Initial CT scan reading shows no acute findings, however, there is obvious edema on exam. CT is being sent to [facility] for reading by another radiologist for second opinion. Patient requesting to leave ED AMA prior to completion of diagnostics and signed AMA paperwork. I did follow the reading of patient's soft tissue CT scan that was reread by [facility] and patient does have prominent right and mild left parotitis concerning for the possibility of mumps. Patient has moderate thickening of the right platysma that extends inferiorly from the inflamed parotid gland, consistent with a secondary cellulitis. No sign of any abscess. And mild reactive right superior jugular chain lymph node with no sign of lymphadenopathy. Patient has already left the ED prior to this reading. However, I did try to get a hold of her by phone 4 times with no answer. I did call and get a hold of Dr. Gee, her primary care provider, and patient does have an appointment tomorrow at [address] in the clinic and Dr. Gee did say she would follow with patient tomorrow and aware of patients case. Voices understanding and is agreeable to plan of care. Denies any further questions or concerns at this time. Diagnostics: CBC, CMP, Soft tissue neck ct w cont Therapeutics: None Prescription: None Impression: Parotiditis Cellulitis, neck Left against medical advice Plan: Patient left the ED against medical advice prior to discharge instructions Definitive disposition and diagnosis as appropriate pending reevaluation and review of above. - Related Data Allergies Allergy/AdvReac Type Severity Reaction Status Date / Time No Known Allergies Allergy Verified 04/27/20 13:29 Home Meds: Home Meds Zolpidem Tartrate [Zolpidem Tartrate ER] 1 tab PO BEDTIME PRN 05/22/15 [History] atenoloL [Tenormin] 50 mg PO QAM 05/22/15 [History] Albuterol Sulfate [Proair Hfa] 1 - 2 puff INH Q4H PRN 01/06/17 [History] Cholecalciferol (Vitamin D3) [Vitamin D3] 1,000 units PO DAILY 01/06/17 [History] ClonazePAM [KlonoPIN] 0.5 mg PO ASDIRECTED PRN 01/06/17 [History] Acetaminophen [Tylenol] 650 mg PO DAILY PRN 01/09/17 [History] Calcium Carbonate [Calcium] 1 tab PO DAILY 09/24/19 [History] Levothyroxine Sodium 137 mcg PO DAILY 09/24/19 [History] Omeprazole 40 mg PO DAILY 09/24/19 [History] Amoxicillin/Potassium Clav [Augmentin 875-125 Tablet] 1 each PO BID 7 Days #14 tablet 04/27/20 [Rx] Cholestyramine [Cholestyramine Resin] 5 gram PO DAILY PRN 04/27/20 [History] Past Medical History HEENT History: Reports: Other (See Below) Other HEENT History: wears glasses, has upper denture Cardiovascular History: Reports: Hypertension Respiratory History: Reports: COPD Other Respiratory History: 40 yr history of smoking Gastrointestinal History: Reports: Colon Polyp, GERD, Hepatitis Other Gastrointestinal History: hx of Hepatitis C- has been treate- cleared in 2009 Genitourinary History: Reports: None RN OCCUPATIONAL History: Reports: Musculoskeletal History: Reports: Back Pain, Chronic, Neck Pain, Chronic, Other (See Below) Other Musculoskeletal History: hx of fx vertebrae Neurological History: Reports: Migraines, Other (See Below) Other Neuro History: hx of motion sickness Psychiatric History: Reports: Anxiety Endocrine/Metabolic History: Reports: Hypothyroidism, Obesity/BMI 30+, Osteopenia, Other (See Below) Hematologic History: Reports: Anemia Immunologic History: Reports: None Oncologic (Cancer) History: Reports: None Dermatologic History: Reports: Psoriasis - Infectious Disease History Infectious Disease History: Reports: Hepatitis C, Measles, Mumps - Past Surgical History Head Surgeries/Procedures: Reports: None GI Surgical History: Reports: Cholecystectomy, Colonoscopy, Other (See Below) Other GI Surgeries/Procedures: hx of liver bx Female Surgical History: Reports: Tubal Ligation Social & Family History - Family History Family Medical History: Noncontributory Neurological: Reports: Alzheimers Disease - Caffeine Use Caffeine Use: Reports: None - Recreational Drug Use Recreational Drug Use: No ED ROS GENERAL - Review of Systems Review Of Systems: Comprehensive ROS is negative, except as noted in HPI. ED EXAM, GENERAL - Physical Exam Exam: See Below (see dictation) Course - Vital Signs Last Recorded V/S: Last Vital Signs Temp 98.1 F 04/27/20 13:31 Pulse 102 H 04/27/20 13:31 Resp 20 04/27/20 13:31 BP 124/95 H 04/27/20 13:31 Pulse Ox 95 04/27/20 13:31 - Orders/Labs/Meds Labs: Laboratory Tests 04/27/20 04/27/20 Range/Units 12:12 12:12 WBC 7.07 (4.0-11.0) K/uL RBC 4.67 (4.30-5.90) M/uL Hgb 14.3 (12.0-16.0) g/dL Hct 42.5 (36.0-46.0) % MCV 91.0 (80.0-98.0) fL MCH 30.6 (27.0-32.0) pg MCHC 33.6 (31.0-37.0) g/dL RDW Std Deviation 46.0 (28.0-62.0) fl RDW Coeff of Tonya 14 (11.0-15.0) % Plt Count 203 (150-400) K/uL MPV 11.00 (7.40-12.00) fL Neut % (Auto) 60.2 (48.0-80.0) % Lymph % (Auto) 30.6 (16.0-40.0) % Early % (Auto) 5.7 (0.0-15.0) % Eos % (Auto) 3.1 (0.0-7.0) % Baso % (Auto) 0.4 (0.0-1.5) % Neut # (Auto) 4.3 (1.4-5.7) K/uL Lymph # (Auto) 2.2 (0.6-2.4) K/uL Early # (Auto) 0.4 (0.0-0.8) K/uL Eos # (Auto) 0.2 (0.0-0.7) K/uL Baso # (Auto) 0.0 (0.0-0.1) K/uL Sodium 139 (136-145) mmol/L Potassium 3.8 (3.5-5.1) mmol/L Chloride 102 (98-107) mmol/L Carbon Dioxide 28.1 (21.0-32.0) mmol/L BUN 7 (7.0-18.0) mg/dL Creatinine 1.0 (0.6-1.0) mg/dL Est Cr Clr Drug Dosing 53.20 mL/min Estimated GFR (MDRD) 55.8 ml/min Glucose 121 H (74-106) mg/dL Calcium 8.6 (8.5-10.1) mg/dL Total Bilirubin 0.5 (0.2-1.0) mg/dL AST 55 H (15-37) IU/L ALT 59 (14-63) IU/L Alkaline Phosphatase 97 (46-116) U/L Total Protein 7.4 (6.4-8.2) g/dL Albumin 3.6 (3.4-5.0) g/dL Globulin 3.8 (2.6-4.0) g/dL Albumin/Globulin Ratio 0.9 (0.9-1.6) Meds: Medications Discontinued Medications Generic Name Dose Route Start Last Admin Trade Name Freq PRN Reason Stop Dose Admin Iopamidol 100 ml 04/27/20 15:24 04/27/20 15:26 Isovue Multipack-370 (76%) IVPUSH 04/27/20 15:25 100 ml ONETIME STA Administration Departure - Departure Time of Disposition: 16:37 Disposition: Against Medical Advice 07 Clinical Impression: Left against medical advice, Parotiditis Cellulitis Qualifiers: Site of cellulitis: neck Qualified Code(s): L03.221 - Cellulitis of neck - Discharge Information Prescriptions: Amoxicillin/Potassium Clav [Augmentin 875-125 Tablet] 1 each PO BID 7 Days #14 tablet Referrals: Esha Gee MD [Primary Care Provider] - Forms: ED Department Discharge Additional Instructions: Patient left ED against medical advice prior to discharge instructions Sepsis Event Note (ED) - Evaluation Sepsis Screening Result: No Definite Risk - Focused Exam Vital Signs: Vital Signs Temp Pulse Resp BP Pulse Ox 04/27/20 13:31 98.1 F 102 H 20 124/95 H 95
[2020-04-27 14:51] LABS: CARBON DIOXIDE,CO2 28.1 mmol/L (21.0-32.0); POTASSIUM,K 3.8 mmol/L (3.5-5.1)
[2020-04-27] MEDS ORDERED: Iopamidol 755 MG/ML 200 ML Multipack Bottle IVPUSH STA (15:24)
--- NOTE | 2020-04-27 15:40 | CT ---
CT neck Technique: Multiple axial sections were obtained through the neck. Reconstructed coronal and sagittal images were obtained. Intravenous contrast was utilized. Findings: Visualized paranasal sinuses shows minimal mucosal thickening inferiorly within both maxillary sinuses. Parotid salivary glands and submandibular salivary glands appear normal. No parapharyngeal soft tissue swelling is seen. No low density fluid collections of abscess are seen within the neck. Visualized lung apices show nothing acute. No prevertebral soft tissue swelling is noted. Epiglottis is normal in size. Impression: 1. Nothing acute is appreciated on CT study of the neck. Diagnostic code #1 Study was dictated in MDT
== END 2020-04-27 16:40 | disposition left against medical advice (07) ==
LOC: MW.ED 13:17
DX: K11.20 Sialoadenitis, unspecified (principal); L03.221 Cellulitis of neck; I10 Essential (primary) hypertension; J44.9 Chronic obstructive pulmonary disease, unspecified; K21.9 Gastro-esophageal reflux disease without esophagitis; E03.9 Hypothyroidism, unspecified; E66.9 Obesity, unspecified; Z79.899 Other long term (current) drug therapy; Z68.34 Body mass index [BMI] 34.0-34.9, adult
CPT/HCPCS: 36415; 70491; 80053; 85025; 99284; Q9967; 99282

== ENCOUNTER 2021-04-13 12:54 | Emergency (ER) | payer MEDICARE ==
[2021-04-13] MEDS ORDERED: Nicotine 21 MG/24 Hr Patch TRDERM ONE (13:58)
[2021-04-13] MEDS ORDERED: Ondansetron 4 MG/2 ML SDV IVPUSH ONE (13:58)
--- NOTE | 2021-04-13 14:01 | EDM.PDOC ---
ED HPI GENERAL MEDICAL PROBLEM - General Chief Complaint: Gastrointestinal Problem Stated Complaint: VOMITTING Time Seen by Provider: 04/13/21 13:35 Source of Information: Reports: Patient History Limitations: Reports: No Limitations - History of Present Illness INITIAL COMMENTS - FREE TEXT/NARRATIVE: HISTORY AND PHYSICAL: History of present illness: Patient is a 65-year-old female who presents emergency room today with concern of upper abdominal pain radiating into her chest x2 days and nausea. Patient states that she first felt symptoms yesterday and again today when she woke up that lasted for several hours. Patient states that she has had a few dry heaving episodes but she has not vomited. Patient states she is concerned she possibly has COVID-19 as she did travel approximately 9 days ago. Patient states that she is also having upper abdominal pain that is radiating into her chest at times. Patient states that she does smoke heavily and has increased the amount that she has been smoking lately due to stress. Patient denies fever, chills, shortness of breath, or cough. Denies headache, neck stiff ness, change in vision, syncope, or near syncope. Denies diarrhea, constipation, or dysuria. Has not noted any blood in urine or stool. Review of systems: As per history of present illness and below otherwise all systems reviewed and negative. Past medical history: As per history of present illness and as reviewed below otherwise noncontributory. Surgical history: As per history of present illness and as reviewed below otherwise noncontributory. Social history: See social history for further information Family history: As per history of present illness and as reviewed below otherwise noncontributory. Physical exam: General: Patient is alert, oriented, and in no acute distress. Patient sitting comfortably on exam table. Vitals stable and reviewed by me HEENT: Atraumatic, normocephalic, pupils equal and reactive bilaterally, negative for conjunctival pallor or scleral icterus, mucous membranes moist, TMs normal bilaterally, throat clear, neck supple, nontender, trachea midline. No drooling or trismus noted. No meningeal signs. No hot potato voice noted. Lungs: Mild wheezing to auscultation, breath sounds equal bilaterally, chest nontender. Heart: S1S2, regular rate and rhythm without overt murmur Abdomen: Soft, nondistended, mild RUQ/LUQ tenderness without guarding. Negative for masses or hepatosplenomegaly. Negative for costovertebral tenderness. Pelvis: Stable nontender. Genitourinary: Deferred. Rectal: Deferred. Skin: Intact, warm, dry. No lesions or rashes noted. Extremities: Atraumatic, negative for cords or calf pain. Neurovascular unremarkable. Neuro: Awake, alert, oriented. Cranial nerves II through XII unremarkable. Cerebellum unremarkable. Motor and sensory unremarkable throughout. Exam nonfocal. Notes: Patient is a 65-year-old female who presents emergency room today with concern of nausea, upper abdominal pain radiating into her chest x2 days. Upon arrival to the ED, patient is vitally stable and well-appearing on exam. Will obtain cardiac evaluation and reassess patient. See Dr. Couch dictation for specific EKG interpretation. However normal sinus rhythm without STEMI Mild derangements of CBC unremarkable. CMP unremarkable. Troponin negative. Lipase within normal limits. Urinalysis shows 30 protein with trace ketones. Leukocyte esterase trace with no red blood cells and 0-2 white blood cells with 1+ bacteria. Pending urine culture. Given that patient is asymptomatic for acute cystitis, will culture urine and follow urine cultures for determination of need for abx. Covid and influenza negative Chest x-ray shows no acute cardiopulmonary disease. Abdominal pelvic CT shows no acute intra-abdominal and inflammatory process. Hepatic steatosis. Colonic diverticulosis. Old L2 fracture. Status post cholecystectomy. I did offer patient a repeat troponin given the radiation of her abdominal pain into her chest, however, patient declines that she would like to leave the emergency room at this time and does not want to wait for a repeat lab. All risks versus benefits of this discussed with patient and expresses understanding. Upon reevaluation of patient, she remains vitally stable and has improvement of her nausea with therapeutics given today in the emergency room. Strict return precautions thoroughly discussed with patient. All signs and symptoms are prompt return to the ED thoroughly discussed with patient. Discussed importance for follow-up with a primary care provider. Voices understanding and is agreeable to plan of care. Denies any further questions or concerns at this time. Diagnostics: EKG, CBC, CMP, UA, Lipase, COVID/Flu, CXR, Abd/Pelvic CT w cont Therapeutics: Zofran, NS, Nicotine patch Prescription: Zofran Impression: Abdominal pain, unspecified Plan: 1. Take medication as prescribed. You can alternate ibuprofen and Tylenol as d irected for pain and discomfort. 2. Follow-up with your primary care provider as discussed. Return to the ED as needed and as discussed. Definitive disposition and diagnosis as appropriate pending reevaluation and review of above. Abdomen Pain Score (Numeric/FACES): 8 - Related Data Allergies Allergy/AdvReac Type Severity Reaction Status Date / Time No Known Allergies Allergy Verified 04/13/21 13:17 Home Meds: Home Meds atenoloL [Tenormin] 50 mg PO QAM 05/22/15 [History] Albuterol Sulfate [Proair Hfa] 1 - 2 puff INH Q4H PRN 01/06/17 [History] ClonazePAM [KlonoPIN] 0.5 mg PO ASDIRECTED PRN 01/06/17 [History] Acetaminophen [Tylenol] 650 mg PO DAILY PRN 01/09/17 [History] Levothyroxine Sodium 137 mcg PO DAILY 09/24/19 [History] Omeprazole 40 mg PO DAILY 09/24/19 [History] Ondansetron [Zofran ODT] 4 mg PO Q6H PRN #8 tab.dis 04/13/21 [Rx] Past Medical History HEENT History: Reports: Other (See Below) Other HEENT History: wears glasses, has upper denture Cardiovascular History: Reports: Hypertension Respiratory History: Reports: COPD Other Respiratory History: 40 yr history of smoking Gastrointestinal History: Reports: Colon Polyp, GERD, Hepatitis Other Gastrointestinal History: hx of Hepatitis C- has been treate- cleared in 2009 Genitourinary History: Reports: None 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: Musculoskeletal History: Reports: Back Pain, Chronic, Neck Pain, Chronic, Other (See Below) Other Musculoskeletal History: hx of fx vertebrae Neurological History: Reports: Migraines, Other (See Below) Other Neuro History: hx of motion sickness Psychiatric History: Reports: Anxiety Endocrine/Metabolic History: Reports: Hypothyroidism, Obesity/BMI 30+, Osteopenia, Other (See Below) Hematologic History: Reports: Anemia Immunologic History: Reports: None Oncologic (Cancer) History: Reports: None Dermatologic History: Reports: Psoriasis - Infectious Disease History Infectious Disease History: Reports: Hepatitis C, Measles, Mumps - Past Surgical History Head Surgeries/Procedures: Reports: None HEENT Surgical History: Reports: None Cardiovascular Surgical History: Reports: None Respiratory Surgical History: Reports: None GI Surgical History: Reports: Cholecystectomy, Colonoscopy, Other (See Below) Other GI Surgeries/Procedures: hx of liver bx Female Surgical History: Reports: Tubal Ligation Other Female Surgeries/Procedures: micro surgery for tubal reversal when patient was 30 years old. Endocrine Surgical History: Reports: None Neurological Surgical History: Reports: None Musculoskeletal Surgical History: Reports: None Oncologic Surgical History: Reports: None Dermatological Surgical History: Reports: None Social & Family History - Family History Family Medical History: No Pertinent Family History Neurological: Reports: Alzheimers Disease - Tobacco Use Tobacco Use Status *Q: Current Every Day Tobacco User Years of Tobacco use: 40 Packs/Tins Daily: 1.5 - Caffeine Use Caffeine Use: Reports: None - Recreational Drug Use Recreational Drug Use: No ED ROS GENERAL - Review of Systems Review Of Systems: Comprehensive ROS is negative, except as noted in HPI. ED EXAM, GENERAL - Physical Exam Exam: See Below (see dictation) Course - Vital Signs Last Recorded V/S: Last Vital Signs Temp 98 F 04/13/21 13:18 Pulse 58 L 04/13/21 16:29 Resp 16 04/13/21 16:29 BP 156/72 H 04/13/21 16:29 Pulse Ox 96 04/13/21 16:29 - Orders/Labs/Meds Orders: Active Orders 24 hr Category Date Time Status CULTURE URINE [MREF] Stat Lab 04/13/21 14:13 Received Labs: Laboratory Tests 04/13/21 04/13/21 04/13/21 Range/Units 14:13 14:14 14:14 WBC 10.79 (4.0-11.0) K/uL RBC 5.09 (4.30-5.90) M/uL Hgb 15.5 (12.0-16.0) g/dL Hct 45.2 (36.0-46.0) % MCV 88.8 (80.0-98.0) fL MCH 30.5 (27.0-32.0) pg MCHC 34.3 (31.0-37.0) g/dL RDW Std Deviation 44.1 (28.0-62.0) fl RDW Coeff of Tonya 14 (11.0-15.0) % Plt Count 251 (150-400) K/uL MPV 11.60 (7.40-12.00) fL Neut % (Auto) 71.3 (48.0-80.0) % Lymph % (Auto) 22.3 (16.0-40.0) % [place] % (Auto) 6.0 (0.0-15.0) % Eos % (Auto) 0.3 (0.0-7.0) % Baso % (Auto) 0.1 (0.0-1.5) % Neut # (Auto) 7.7 H (1.4-5.7) K/uL Lymph # (Auto) 2.4 (0.6-2.4) K/uL [place] # (Auto) 0.7 (0.0-0.8) K/uL Eos # (Auto) 0.0 (0.0-0.7) K/uL Baso # (Auto) 0.0 (0.0-0.1) K/uL Nucleated RBC % 0.0 /100WBC Nucleated RBCs # 0 K/uL Sodium 137 (136-145) mmol/L Potassium 3.9 (3.5-5.1) mmol/L Chloride 102 (98-107) mmol/L Carbon Dioxide 26.9 (21.0-32.0) mmol/L BUN 16 (7.0-18.0) mg/dL Creatinine 0.8 (0.6-1.0) mg/dL Est Cr Clr Drug Dosing 65.63 mL/min Estimated GFR (MDRD) > 60.0 ml/min Glucose 110 H (74-106) mg/dL Calcium 8.9 (8.5-10.1) mg/dL Magnesium 1.9 (1.8-2.4) mg/dL Total Bilirubin 0.3 (0.2-1.0) mg/dL AST 34 (15-37) IU/L ALT 47 (14-63) IU/L Alkaline Phosphatase 102 (46-116) U/L Troponin I < 0.050 (0.000-0.056) ng/mL Total Protein 7.5 (6.4-8.2) g/dL Albumin 3.8 (3.4-5.0) g/dL Globulin 3.7 (2.6-4.0) g/dL Albumin/Globulin Ratio 1.0 (0.9-1.6) Lipase 166 (73-393) U/L Urine Color YELLOW Urine Appearance SLT CLOUDY Urine pH 6.0 (5.0-8.0) Ur Specific [place] >= 1.030 (1.001-1.035) Urine Protein 30 H (NEGATIVE) mg/dL Urine Glucose (UA) NEGATIVE (NEGATIVE) mg/dL Urine Ketones TRACE H (NEGATIVE) mg/dL Urine Occult Blood NEGATIVE (NEGATIVE) Urine Nitrite NEGATIVE (NEGATIVE) Urine Bilirubin SMALL H (NEGATIVE) Urine Ictotest NEGATIVE Urine Urobilinogen 0.2 (<2.0) EU/dL Ur Leukocyte Esterase TRACE H (NEGATIVE) Urine RBC NONE SEEN (0-2/HPF) Urine WBC 0-2 (0-5/HPF) Ur Epithelial Cells FEW (NONE-FEW) Urine Bacteria 1+ H (NEGATIVE) Urine Mucus LIGHT (NONE-MOD) Influenza Type A RNA (NEGATIVE) Influenza Type B RNA (NEGATIVE) SARS-CoV-2 RNA (ЮЛИЯ) (NEGATIVE) 04/13/21 Range/Units 14:56 WBC (4.0-11.0) K/uL RBC (4.30-5.90) M/uL Hgb (12.0-16.0) g/dL Hct (36.0-46.0) % MCV (80.0-98.0) fL MCH (27.0-32.0) pg MCHC (31.0-37.0) g/dL RDW Std Deviation (28.0-62.0) fl RDW Coeff of Tonya (11.0-15.0) % Plt Count (150-400) K/uL MPV (7.40-12.00) fL Neut % (Auto) (48.0-80.0) % Lymph % (Auto) (16.0-40.0) % [place] % (Auto) (0.0-15.0) % Eos % (Auto) (0.0-7.0) % Baso % (Auto) (0.0-1.5) % Neut # (Auto) (1.4-5.7) K/uL Lymph # (Auto) (0.6-2.4) K/uL [place] # (Auto) (0.0-0.8) K/uL Eos # (Auto) (0.0-0.7) K/uL Baso # (Auto) (0.0-0.1) K/uL Nucleated RBC % /100WBC Nucleated RBCs # K/uL Sodium (136-145) mmol/L Potassium (3.5-5.1) mmol/L Chloride (98-107) mmol/L Carbon Dioxide (21.0-32.0) mmol/L BUN (7.0-18.0) mg/dL Creatinine (0.6-1.0) mg/dL Est Cr Clr Drug Dosing mL/min Estimated GFR (MDRD) ml/min Glucose (74-106) mg/dL Calcium (8.5-10.1) mg/dL Magnesium (1.8-2.4) mg/dL Total Bilirubin (0.2-1.0) mg/dL AST (15-37) IU/L ALT (14-63) IU/L Alkaline Phosphatase (46-116) U/L Troponin I (0.000-0.056) ng/mL Total Protein (6.4-8.2) g/dL Albumin (3.4-5.0) g/dL Globulin (2.6-4.0) g/dL Albumin/Globulin Ratio (0.9-1.6) Lipase (73-393) U/L Urine Color Urine Appearance Urine pH (5.0-8.0) Ur Specific [place] (1.001-1.035) Urine Protein (NEGATIVE) mg/dL Urine Glucose (UA) (NEGATIVE) mg/dL Urine Ketones (NEGATIVE) mg/dL Urine Occult Blood (NEGATIVE) Urine Nitrite (NEGATIVE) Urine Bilirubin (NEGATIVE) Urine Ictotest Urine Urobilinogen (<2.0) EU/dL Ur Leukocyte Esterase (NEGATIVE) Urine RBC (0-2/HPF) Urine WBC (0-5/HPF) Ur Epithelial Cells (NONE-FEW) Urine Bacteria (NEGATIVE) Urine Mucus (NONE-MOD) Influenza Type A RNA NEGATIVE (NEGATIVE) Influenza Type B RNA NEGATIVE (NEGATIVE) SARS-CoV-2 RNA (ЮЛИЯ) NEGATIVE (NEGATIVE) Meds: Medications Discontinued Medications Generic Name Dose Route Start Last Admin Trade Name Freq PRN Reason Stop Dose Admin Iopamidol 100 ml 04/13/21 15:47 04/13/21 15:53 Iopamidol 755 Mg/Ml 500 Ml Multipack Bottle IVPUSH 04/13/21 15:48 100 ml ONETIME STA Administration Nicotine 21 mg 04/13/21 13:58 04/13/21 14:18 Nicotine 21 Mg/24 Hr Patch TRDERM 04/13/21 13:59 21 mg ONETIME ONE Administration Ondansetron HCl 4 mg 04/13/21 13:58 04/13/21 14:18 Ondansetron 4 Mg/2 Ml Sdv IVPUSH 04/13/21 13:59 4 mg ONETIME ONE Administration Departure - Departure Time of Disposition: 16:35 Disposition: Home, Self-Care 01 Clinical Impression: Abdominal pain - Discharge Information Prescriptions: Ondansetron [Zofran ODT] 4 mg PO Q6H PRN #8 tab.dis PRN Reason: Nausea/Vomiting Instructions: Abdominal Pain, Adult Referrals: Edvin Elkins MD [Primary Care Provider] - Forms: ED Department Discharge Additional Instructions: The following information is given to patients seen in the emergency department who are being discharged to home. This information is to outline your options for follow-up care. We provide all patients seen in our emergency department with a follow-up referral. The need for follow-up, as well as the timing and circumstances, are variable depending upon the specifics of your emergency department visit. If you don't have a primary care physician on staff, we will provide you with a referral. We always advise you to contact your personal physician following an emergency department visit to inform them of the circumstance of the visit and for follow-up with them and/or the need for any referrals to a consulting specialist. The emergency department will also refer you to a specialist when appropriate. This referral assures that you have the opportunity for follow-up care with a specialist. All of these measure are taken in an effort to provide you with optimal care, which includes your follow-up. Under all circumstances we always encourage you to contact your private physician who remains a resource for coordinating your care. When calling for follow-up care, please make the office aware that this follow-up is from your recent emergency room visit. If for any reason you are refused follow-up, please contact the [facility] Emergency Department at and asked to speak to the emergency department charge nurse. [facility] [address] [place] [address] [id number] [facility] [address] [place] [address] 1. Take medication as prescribed. You can alternate ibuprofen and Tylenol as directed for pain and discomfort. 2. Follow-up with your primary care provider as discussed. Return to the ED as needed and as discussed. Sepsis Event Note (ED) - Evaluation Sepsis Screening Result: No Definite Risk - Focused Exam Vital Signs: Vital Signs Temp Pulse Resp BP Pulse Ox 04/13/21 16:29 58 L 16 156/72 H 96 04/13/21 15:30 58 L 16 149/82 H 96 04/13/21 14:22 54 L 16 139/80 96 04/13/21 13:18 98 F 61 16 122/100 H 97 - My Orders Last 24 Hours: My Active Orders 04/13/21 14:13 CULTURE URINE [MREF] Stat - Assessment/Plan Last 24 Hours: My Active Orders 04/13/21 14:13 CULTURE URINE [MREF] Stat
--- NOTE | 2021-04-13 14:10 | PCM.EKG ---
#1 Interpretation EKG Date: 04/13/21 Time: 14:09 EKG Interpretation Comments: 54, sinus bradycardia, nonspecific ST/T findings
--- NOTE | 2021-04-13 14:27 | CR ---
INDICATION: Chest Pain TECHNIQUE: Chest radiograph 1 view COMPARISON: 12/16/2017 FINDINGS: Mediastinum: The mediastinum is normal in appearance. The heart silhouette is normal in size and morphology. Lung: Both lungs are unremarkable in appearance. No sign of pleural effusion seen. No pneumothorax is identified. Bone and Soft tissue: Unremarkable for age. IMPRESSION: 1. No acute cardiopulmonary disease is seen. Dictated by: Tex Mobley MD @ 04/13/2021 14:27:13 (Electronically Signed)
[2021-04-13 14:50] LABS: BLOOD UREA NITROGEN,BUN 16 mg/dL (7.0-18.0); CARBON DIOXIDE,CO2 26.9 mmol/L (21.0-32.0); CHLORIDE,CL 102 mmol/L (98-107); GLUCOSE RANDOM 110 mg/dL (74-106); LIPASE 166 U/L (73-393); POTASSIUM,K 3.9 mmol/L (3.5-5.1); SODIUM,NA 137 mmol/L (136-145)
[2021-04-13 15:42] LABS: CORONAVIRUS COVID-19 NAA NEGATIVE (NEGATIVE); INFLUENZA A NAA NEGATIVE (NEGATIVE); INFLUENZA B NAA NEGATIVE (NEGATIVE)
[2021-04-13] MEDS ORDERED: Iopamidol 755 MG/ML 500 ML Multipack Bottle IVPUSH STA (15:47)
--- NOTE | 2021-04-13 16:25 | CT ---
INDICATION: Abdominal pain TECHNIQUE: CT abdomen and pelvis acquired with 100 cc Isovue 370 IV contrast. COMPARISON: None FINDINGS: Lower chest: Unremarkable. Liver: Hepatic steatosis. Spleen: Unremarkable. Pancreas: Unremarkable. Gallbladder and bile ducts: S/p cholecystectomy. Adrenal glands: Unremarkable. Kidneys: Unremarkable. GI tract: Colonic diverticulosis. Appendix is normal. Vascular structures: Mild atherosclerotic calcification. Lymph nodes: Unremarkable. Miscellaneous: Unremarkable. No free air or significant free fluid. Pelvic Organs: Unremarkable. Bones: Old L2 fracture, otherwise unremarkable for age. IMPRESSION: No acute intra abdominal and inflammatory process identified. Hepatic steatosis. Colonic diverticulosis. Old L2 fracture. Status post cholecystectomy. Please note that all CT scans at this facility use dose modulation, iterative reconstruction, and/or weight-based dosing when appropriate to reduce radiation dose to as low as reasonably achievable. Dictated by Ana Hernandez MD @ 04/13/2021 4:24:[address] Ana Hernandez @ Apr 13 2021 4:24PM
[2021-04-13 16:29] VITALS: PULSE 58
[2021-04-13 16:34] VITALS: BP 156/72
== END 2021-04-13 16:40 | disposition home or self-care (01) ==
LOC: MW.ED 12:54
DX: R10.11 Right upper quadrant pain (principal); R10.12 Left upper quadrant pain; I10 Essential (primary) hypertension; J44.9 Chronic obstructive pulmonary disease, unspecified; K21.9 Gastro-esophageal reflux disease without esophagitis; E03.9 Hypothyroidism, unspecified; F17.200 Nicotine dependence, unspecified, uncomplicated; E66.9 Obesity, unspecified; Z68.33 Body mass index [BMI] 33.0-33.9, adult; Z20.822 Contact with and (suspected) exposure to COVID-19
CPT/HCPCS: 0240U; 36415; 71045; 74177; 80053; 81001; 83690; 83735; 84484; 85025; 87086; 93005; 96374; 99284; A9270; J2405; Q9967

== ENCOUNTER 2021-12-10 10:59 | Day surgery (SDC) | payer MEDICARE ==
[~2021-12-10 10:59] MED LIST changes: +Albuterol 0.083% 2.5 MG/3 ML Neb Soln NEB PRN; +HYDROmorphone 1 MG/ML Syringe IVPUSH PRN; +Metoclopramide 10 MG/2 ML SDV IVPUSH PRN; +Naloxone 0.4 MG/ML SDV IVPUSH PRN; +Ondansetron 4 MG/2 ML SDV IVPUSH PRN; -Sodium Chloride 0.9% 10 ML SDV IV PRN; -Sodium Chloride 0.9% 10 ML Syringe FLUSH PRN; -Sodium Chloride 0.9% 2.5 ML Syringe FLUSH PRN
[2021-12-10] MEDS ORDERED: Bupivacaine 0.5% 30 ML SDV ONE (12:08)
[2021-12-10] MEDS ORDERED: Propofol 200 MG/20 ML SDV ONE ×2 (12:11→12:42)
[2021-12-10] MEDS ORDERED: Lidocaine 2% 5 ML SDV ONE (12:11)
[2021-12-10] MEDS ORDERED: fentaNYL 100 MCG/2 ML SDV ONE (12:11)
[2021-12-10] MEDS ORDERED: ePHEDrine 50 MG/ML SDV ONE (12:50)
[2021-12-10] MEDS ORDERED: Ondansetron 4 MG/2 ML SDV ONE (13:08)
[2021-12-10] MEDS: fentaNYL 100 MCG/2 ML SDV IVPUSH PRN ×2 (13:55→14:01)
[2021-12-10] MEDS ORDERED: Acetaminophen 1,000 MG in Premix Bag 1 BAG IV ONE (14:46)
[2021-12-10 15:55] VITALS: BP 128/69; PULSE 77
== END 2021-12-10 15:15 | disposition home or self-care (01) ==
LOC: MW.SDS 10:59
PROVIDERS: ATTEND Obstetrics & Gynecology
DX: D07.1 Carcinoma in situ of vulva (principal); N84.2 Polyp of vagina; L91.8 Other hypertrophic disorders of the skin; N89.4 Leukoplakia of vagina; I10 Essential (primary) hypertension; E03.9 Hypothyroidism, unspecified; K21.9 Gastro-esophageal reflux disease without esophagitis; F17.210 Nicotine dependence, cigarettes, uncomplicated; E66.9 Obesity, unspecified; Z98.51 Tubal ligation status; Z68.35 Body mass index [BMI] 35.0-35.9, adult; Z90.49 Acquired absence of other specified parts of digestive tract; Z98.890 Other specified postprocedural states; Z79.890 Hormone replacement therapy; Z79.899 Other long term (current) drug therapy
CPT/HCPCS: 11200; 56620; 57135; 71046; 88305; 93005; 99213; J0131; J2405; J2704; J3010; J3490; J7120; 00904; 93010

== ENCOUNTER 2024-05-08 11:17 | Emergency (ER) | payer MEDICARE ==
[2024-05-08 11:36] LABS: BASOPHILS ABSOLUTE AUTO 0.05 K/uL (0.00-0.20); BASOPHILS PERCENT AUTO 0.8 % (0.0-1.0); EOSINOPHILS ABSOLUTE AUTO 0.06 K/uL (0.00-0.45); HEMATOCRIT 41.9 % (37.0-47.0); HEMOGLOBIN 14.3 g/dL (12.0-16.0); IMMATURE GRAN ABSOLUTE AUTO 0.03 K/uL (0.00-0.05); IMMATURE GRAN PERCENT AUTO 0.5 % (0.0-0.4); LYMPHOCYTES ABSOLUTE AUTO 1.52 K/uL (1.00-4.80); LYMPHOCYTES PERCENT AUTO 24.6 % (24.0-44.0); MEAN CORPUSCULAR HGB CONC 34.1 g/dL (32.0-36.0); MEAN PLATELET VOLUME 10.9 fL (9.4-12.3); MONOCYTES ABSOLUTE AUTO 0.74 K/uL (0.00-0.80); NEUTROPHILS ABSOLUTE AUTO 3.77 K/uL (1.80-7.70); NEUTROPHILS PERCENT AUTO 61.1 % (41.0-71.0); PLATELET COUNT,PLT 174 K/uL (150-400); RED BLOOD CELL COUNT 4.76 M/uL (4.10-5.30); WHITE BLOOD CELL COUNT,WBC 6.17 K/uL (3.9-11.3)
[2024-05-08 11:57] LABS: ALANINE AMINOTRANSFERASE,ALT 47 IU/L (14-63); ALBUMIN 3.9 g/dL (3.4-5.0); ALKALINE PHOSPHATASE 109 U/L (46-116); ASPARTATE AMNIOTRANSFERASE,AST 69 IU/L (15-37); BILIRUBIN TOTAL 0.7 mg/dL (0.2-1.0); BLOOD UREA NITROGEN,BUN 9 mg/dL (7.0-18.0); CARBON DIOXIDE,CO2 26.1 mmol/L (21.0-32.0); CHLORIDE,CL 100 mmol/L (98-107); CREATININE 1.1 mg/dL (0.6-1.0); GLUCOSE RANDOM 123 mg/dL (74-106); POTASSIUM,K 4.2 mmol/L (3.5-5.1); PROTEIN TOTAL,TP 7.8 g/dL (6.4-8.2); SODIUM,NA 135 mmol/L (136-145)
[2024-05-08 11:59] LABS: ESTIMATED GFR 54 mL/min (>60)
[2024-05-08 12:09] VITALS: BP 132/75
[2024-05-08] MEDS: Codeine/Promethazine 10-6.25 MG/5 ML Syrup 5 ML UD Syringe PO STA (12:58)
[2024-05-08 13:01] LABS: CORONAVIRUS COVID-19 NAA POSITIVE (NEGATIVE); INFLUENZA A NAA NEGATIVE (NEGATIVE); INFLUENZA B NAA NEGATIVE (NEGATIVE)
[2024-05-08 13:23] VITALS: PULSE 77
== END 2024-05-08 13:23 | disposition home or self-care (01) ==
LOC: MW.ED 11:17
DX: U07.1 COVID-19 (principal); I10 Essential (primary) hypertension; K21.9 Gastro-esophageal reflux disease without esophagitis; E03.9 Hypothyroidism, unspecified; E66.9 Obesity, unspecified; Z68.34 Body mass index [BMI] 34.0-34.9, adult; Z75.8 Other problems related to medical facilities and other health care; Z90.49 Acquired absence of other specified parts of digestive tract; Z87.891 Personal history of nicotine dependence; Z79.899 Other long term (current) drug therapy; Z79.890 Hormone replacement therapy
CPT/HCPCS: 0240U; 36415; 71045; 80053; 85025; 93005; 99285; 93010; 99283; J3490

== ENCOUNTER 2024-12-06 08:09 | Day surgery (SDC) | payer MEDICARE ==
[~2024-12-06 08:09] MED LIST changes: -Albuterol 0.083% 2.5 MG/3 ML Neb Soln NEB PRN; -HYDROmorphone 1 MG/ML Syringe IVPUSH PRN; -Lactated Ringers 1,000 ML IV SCH; +Lidocaine 2% 5 ML SDV ONE; -Metoclopramide 10 MG/2 ML SDV IVPUSH PRN; -Naloxone 0.4 MG/ML SDV IVPUSH PRN; -Ondansetron 4 MG/2 ML SDV IVPUSH PRN; +propofoL 500 MG/50 ML 50 ML ONE
[2024-12-06] MEDS: Lactated Ringers 1,000 ML IV SCH (08:33)
[2024-12-06] MEDS ORDERED: Glycopyrrolate 0.2 MG/ML SDV ONE (08:53)
[2024-12-06] MEDS ORDERED: Lactated Ringers 1,000 ML IV SCH (09:30)
[2024-12-06 09:45] VITALS: PULSE 69
[2024-12-06 11:28] VITALS: BP 117/58
== END 2024-12-06 10:15 | disposition home or self-care (01) ==
LOC: MW.SDS 08:09
PROVIDERS: ATTEND Surgery
DX: K57.30 Diverticulosis of large intestine without perforation or abscess without bleeding (principal); K52.9 Noninfective gastroenteritis and colitis, unspecified; R19.4 Change in bowel habit; I10 Essential (primary) hypertension; E03.9 Hypothyroidism, unspecified; E66.9 Obesity, unspecified; F17.210 Nicotine dependence, cigarettes, uncomplicated; Z79.899 Other long term (current) drug therapy; Z79.890 Hormone replacement therapy; Z68.34 Body mass index [BMI] 34.0-34.9, adult; Z86.0100 Personal history of colon polyps, unspecified; Z86.16 Personal history of COVID-19
CPT/HCPCS: 45378; J1596; J2003; J2704; J7120; 00811